=== PATIENT | female | born 1975 | race African-American/Black ===

== ENCOUNTER 2019-06-11 13:00 | Outpatient (RCR) | payer OTHER, SELFPAY | END 2019-06-29 11:43 | disposition home or self-care (01) | LOC: PT.CARL 13:00 | PROVIDERS: Visit Provider Nurse Practitioner Family | DX: S39.012D Strain of muscle, fascia and tendon of lower back, subsequent encounter (principal) | CPT/HCPCS: 97010; 97012; 97014; 97110; 97163; G0283 ==